=== PATIENT | male | born 1990 | race American Indian/Alaskan Native ===

== ENCOUNTER 2018-12-01 12:44 | Emergency (ER) | payer SELFPAY ==
--- NOTE | 2018-12-01 08:39 | Emergency Department Report ---
ED Seizure HPI - General Chief Complaint: Seizure Source: EMS Mode of arrival: Stretcher Limitations: No Limitations - History of Present Illness Initial Comments: Patient is 28 years old male with history of seizure. Patient brought to the emergency room from a hotel room after he had 1 episode of generalized tonic clonic seizure witnessed by his girlfriend. Patient stated that last time he had a seizure was 6 years ago. Patient is not on any medication. Patient now is alert, oriented 3 no acute distress. Patient is complaining of mild headache. No fever or chills. MD Complaint: seizure -: This morning Description of Episode: loss of consciousness, tonic-clonic movement, bladder incontinence, post-event confusion Witnessed:: Yes Trauma: Yes Seizure History: known seizure disorder Associated Symptoms: denies other symptoms Treatments Prior to Arrival: none - Related Data Allergies Allergy/AdvReac Type Severity Reaction Status Date / Time No Known Allergies Allergy Verified 12/01/18 08:46 ED Review of Systems ROS: Stated complaint: Other details as noted in HPI Comment: All other systems reviewed and negative Constitutional: denies: chills, fever Respiratory: denies: cough, orthopnea, shortness of breath, SOB with exertion, SOB at rest, wheezing Cardiovascular: denies: chest pain, palpitations Gastrointestinal: denies: abdominal pain, nausea, vomiting Musculoskeletal: denies: back pain Neurological: headache. denies: weakness, numbness, paresthesias, confusion, abnormal gait ED Past Medical Hx - Social History Smoking Status: Never Smoker ED Physical Exam - General Limitations: No Limitations General appearance: alert, in no apparent distress - Head Head exam: Present: atraumatic, normocephalic, normal inspection - Eye Eye exam: Present: normal appearance, PERRL - ENT ENT exam: Present: normal exam, normal orophraynx, mucous membranes moist - Neck Neck exam: Present: normal inspection, full ROM. Absent: tenderness, meningismus, lymphadenopathy, thyromegaly - Respiratory Respiratory exam: Present: normal lung sounds bilaterally - Cardiovascular Cardiovascular Exam: Present: regular rate, normal rhythm, normal heart sounds - GI/Abdominal GI/Abdominal exam: Present: soft, normal bowel sounds. Absent: distended, tenderness, guarding, rebound, rigid, organomegaly, mass, bruit, pulsatile mass, hernia - Extremities Exam Extremities exam: Present: normal inspection, full ROM, normal capillary refill - Back Exam Back exam: Present: normal inspection, full ROM. Absent: CVA tenderness (R), CVA tenderness (L) - Neurological Exam Neurological exam: Present: alert, oriented X3, CN II-XII intact, normal gait, reflexes normal - Psychiatric Psychiatric exam: Present: normal mood - Skin Skin exam: Present: warm, intact, normal color ED Course Vital Signs 12/01/18 12/01/18 08:35 10:23 Temperature 98 F Pulse Rate 103 H 87 Respiratory 16 16 Rate Blood Pressure 128/55 122/70 [Left] O2 Sat by Pulse 100 96 Oximetry ED Medical Decision Making - Radiology Data Radiology results: report reviewed Referring Physician: YAMILEX KIRKPATRICK Patient Name: NASIMA MARTINEZ Date of : 1990 Sex: Male Report Date: 2018-12-01 Report Status: [place] [address] Cat Scan Report Signed Patient: NASIMA MARTINEZ MR#: [id number] 2 : 1990 Acct:[id number] Age/Sex: 28 / M ADM Date: Loc: ED Attending Dr: Ordering Physician: YAMILEX KIRKPATRICK Date of Service: 12/01/18 Procedure(s): CT head/brain wo con Accession Number(s): [id number] cc: YAMILEX KIRKPATRICK CT head without contrast INDICATION : Seizure/ headache. Generalized headache today TECHNIQUE: Axial imaging performed from the skull apex through the skull base without the use of contrast. All CT scans at this location are performed using CT dose reduction for ALARA by means of automated exposure control. COMPARISON: None FINDINGS: Parenchyma: No acute intracranial hemorrhage or parenchymal abnormality. Ventricles: Ventricles are normal in size and appear symmetric. Soft tissues: Soft tissues including the orbits appear normal. Bones: No acute osseous abnormality. Sinuses: Sinuses and mastoid air cells are clear. IMPRESSION: No acute abnormality. Signer Name: Guru Jama MD Signed: 12/01/2018 9:17 AM Workstation Name: [id number] Transcribed By: JW Dictated By: Guru Jama MD Electronically Authenticated By: Guru Jama MD Signed Date/Time: 12/01/18916 DD/ 5 TD/TT: - Medical Decision Making Patient is 28 years old male with history of seizure. Patient brought to the emergency room from a hotel room after he had 1 episode of generalized tonic clonic seizure witnessed by his girlfriend. Patient stated that last time he had a seizure was 6 years ago. Patient is not on any medication. Patient now is alert, oriented 3 no acute distress. Patient is complaining of mild headache. No fever or chills. No seizure activity observed in the ER. Patient received 1 g of Keppra. Labs reviewed and is unremarkable. CT brain is negative for acute finding. Patient will be started on Keppra 500 mg twice a day and advised to follow-up with his neurologist in the next 2-3 days. Critical care attestation.: If time is entered above; I have spent that time in minutes in the direct care of this critically ill patient, excluding procedure time. ED Disposition Clinical Impression: Seizure Disposition: DC-01 TO HOME OR SELFCARE Is pt being admited?: No Condition: Stable Instructions: Recurrent Seizures Adult (ED) Referrals: [facility] [Provider Group] - 3-5 Days
--- NOTE | 2018-12-01 09:21 | Cat Scan Report ---
CT head without contrast INDICATION : Seizure/ headache. Generalized headache today TECHNIQUE: Axial imaging performed from the skull apex through the skull base without the use of con trast. All CT scans at this location are performed using CT dose reduction for ALARA by means of aut omated exposure control. COMPARISON: None FINDINGS: Parenchyma: No acute intracranial hemorrhage or parenchymal abnormality. Ventricles: Ventricles are normal in size and appear symmetric. Soft tissues: Soft tissues including the orbits appear normal. Bones: No acute osseous abnormality. Sinuses: Sinuses and mastoid air cells are clear. IMPRESSION: No acute abnormality. Signer Name: Guru Jama MD Signed: 12/01/2018 9:17 AM Workstation Name: [id number]
[2018-12-01 12:21] LABS: Basophils # (Auto) 0.1 K/mm3 (0.0-0.1); Basophils % (Auto) 0.8 % (0.0-1.8); Eosinophils % (Auto) 0.2 % (0.0-4.3); Hematocrit 40.3 % (35.5-45.6); Hemoglobin 13.3 gm/dl (11.8-15.2); Lymphocytes # (Auto) 1.5 K/mm3 (1.2-5.4); Lymphocytes % (Auto) 12.6 % (13.4-35.0); Mean Corpuscular HGB Conc 33 % (32-34); Mean Corpuscular Volume 95 fl (84-94); Monocytes # (Auto) 0.7 K/mm3 (0.0-0.8); Monocytes % (Auto) 5.9 % (0.0-7.3); Platelet Count 285 K/mm3 (140-440); Red Blood Count 4.25 M/mm3 (3.65-5.03); Red Cell Distribution Width 12.5 % (13.2-15.2)
[~2018-12-01 12:44] MED LIST: KEPPRA 1,000 MG/NS 0.75% 100ML 1,000 MG/100 ML BAG IV ONE
[2018-12-01 12:59] LABS: Alanine Aminotransferase 10 units/L (7-56); Albumin 4.2 g/dL (3.9-5); BUN/Creatinine Ratio 14; Blood Urea Nitrogen 15 mg/dL (9-20); Calcium 9.2 mg/dL (8.4-10.2); Hemolysis Index 7
[2018-12-01 13:05] LABS: Bilirubin,Direct < 0.2 mg/dL (0-0.2)
[2018-12-01 13:31] VITALS: BP 113/54
== END 2018-12-01 14:30 | disposition home or self-care (01) ==
LOC: ED 12:44
DX: R56.9 Unspecified convulsions (principal)
CPT/HCPCS: 36415; 70450; 80048; 80076; 82962; 85025; 96365; 99284; J1953; 80320; G0480